=== PATIENT | female | born 1985 | race Caucasian/White ===

== ENCOUNTER 2016-09-30 18:22 | Emergency (ER) | payer OTHER ==
[2016-09-30] MEDS ORDERED: oxyCODONE HCL/ACETAMINOPHEN 1 TAB TABLET PO ONE (19:10)
[2016-09-30] MEDS ORDERED: OFLOXACIN 50 DROP BTL EACH EAR ONE (19:10)
[2016-09-30] MEDS ORDERED: OFLOXACIN 50 DROP BTL ONE (19:14)
[2016-09-30] MEDS ORDERED: oxyCODONE HCL/ACETAMINOPHEN 1 TAB TABLET ONE ×2 (19:14→19:27)
[2016-09-30 19:19] VITALS: BP 138/89
--- NOTE | 2016-09-30 19:30 | ERNOTE ---
ENT HPI Presenting Symptoms: other Time Seen by Provider: 09/30/16 18:48 Source: patient Exam Limitations: no limitations - Immun/Allergies/Home Medications Immunizations: IMMUNIZATION HX Immunizations Up to Date No History of Influenza Vaccine No Hx Pneumococcal Vaccination No Allergies/Adverse Reactions: Allergies Allergy/AdvReac Type Severity Reaction Status Date / Time Sulfa (Sulfonamide Allergy Intermediate eyes Verified 09/30/16 18:38 Antibiotics) swell, burn with sulfa eye drops phentermine AdvReac Intermediate "felt like Verified 09/30/16 18:38 i was having a heart attack" acetaminophen [From Vicodin] AdvReac Mild stomach Verified 09/30/16 18:38 pain, n/v hydrocodone [From Vicodin] AdvReac Mild stomach Verified 09/30/16 18:38 pain, n/v melatonin AdvReac Mild stomach Verified 09/30/16 18:38 pain Home Medications: HOME MEDICATIONS Cephalexin [Keflex] 500 mg PO BID 09/30/16 [Last Taken Unknown] Ibuprofen [Motrin] 400 mg PO QID PRN 09/30/16 [Last Taken Unknown] Ibuprofen [Motrin] 800 mg PO QAM 09/30/16 [Last Taken Unknown] L.acidoph,Paracasei, B.lactis [Probiotic] 1 each PO DAILY 09/30/16 [Last Taken Unknown] Multivitamins [Multivitamin Seng] 1 cap PO DAILY 09/30/16 [Last Taken Unknown] [place]-3 Fatty Acids/Fish Oil [Fish Oil 1,000 mg Capsule] 1 each PO DAILY [Last Taken Unknown] oxyCODONE HCL/ACETAMINOPHEN [Percocet 5 MG/325 MG] 1 - 2 tab PO Q4H PRN #20 tab 09/30/16 [Last Taken Unknown] - History of Present Illness Narrative: Patient had a cochlear implant on 09/20. She had quite a bit of post op pain and migraine like pain that involved her whole head. She was given hydrocodone post op that might her throw up violently. Five days ago she was throwing up so bad that her hands cramped up.She was seen in the [facility] ER, had a head CT and medication and felt better eventually.She was seen by her surgeon three days ago , had another CT and extensive testing done. She was told to see her PCP for pain medication. The generalized headache has resolved but the pain around her right ear has increased in intensity over the last 24 hours. She lay in the bathtub a couple times with her head under water as it seemed to help with the pain Review of Systems - Review of Systems Constitutional: Present: recent illness. Absent: fever, chills EYE: Absent: double vision, vision changes ENT: Present: See HPI, ear pain Respiratory: Absent: shortness of breath, cough Cardiology: Absent: chest pain Gastrointestinal/Abdominal: Absent: nausea, vomiting, diarrhea, abdominal pain Genitourinary: Present: no symptoms reported Musculoskeletal: Absent: neck pain Skin: Absent: rash - Patient's Past Medical History Patient History - Medical: No pertinent hx Patient History - Cardiac/Respiratory: No pertinent hx Patient History - Cancer: No Hx of Cancer Patient History - Surgical Procedures: T & A, Other Patient History - Other: None - Social History Living Situations: home Abuse History: No History of abuse Psych History: No pertinent hx Alcohol Use: none Drug Use: none - Immunizations Immunizations Up to Date: No Hx Pneumococcal Vaccination: No History of Influenza Vaccine: No Physical Exam - Physical Exam General Appearance: Present: wd/wn, mild distress, anxious Eye Exam: Normal inspection: bilateral, PERRL: bilateral Ears, Nose, Throat: Present: normal pharynx, other - right ear canal swollen, scar behind right ear healing well,no significant erythema, swelling, nor drainage. Absent: abnormal TM (R), abnormal TM (L) Neck: Present: normal inspection, nontender, supple, full range of motion Respiratory: Present: no respiratory distress, normal breath sounds, no accessory muscle use, lungs clear Cardiovascular/Chest: Present: regular rate, rhythm, no murmur Neurological Exam: Present: alert, oriented, normal mood/affect, no motor/ sensory deficits Skin Exam: Present: normal color, warm/dry ED Progress - Vital Signs Patient's Vital Signs:: I have reviewed the patient's vital signs. Vital Signs: Vital Signs 09/30/16 18:26 Temperature 36.1 C L Pulse Rate 88 Respiratory 18 Rate Blood Pressure 130/76 O2 Sat by Pulse 99 Oximetry - Progress/Reassessment Chief Complaint: Headache Departure Clinical Impression: Post-op pain Otitis externa of right ear Qualifiers: Otitis externa type: unspecified type Chronicity: acute Qualified Code(s): H60.501 - Unspecified acute noninfective otitis externa, right ear - Departure Disposition: Home self-care Condition: Good Instructions: Otitis Externa, [id number] Additional Instructions: call your surgeon tomorrow for follow up, if your headache gets worse and you start throwing up again return to the ER at any time Prescriptions: oxyCODONE HCL/ACETAMINOPHEN [Percocet 5 MG/325 MG] 1 - 2 tab PO Q4H PRN #20 tab PRN Reason: Pain
== END 2016-09-30 19:37 | disposition home or self-care (01) ==
LOC: ER 18:22
DX: H60.501 Unspecified acute noninfective otitis externa, right ear (principal); G89.18 Other acute postprocedural pain